=== PATIENT | male | born 1970 | race Caucasian/White ===

== ENCOUNTER 2024-09-02 14:45 | Outpatient (AMB) | payer OTHER, SELFPAY ==
--- NOTE | 2024-09-02 14:49 | MHC.OFFVIS ---
Vital Signs 09/02/24 15:03 Pulse 73 Pulse Source Pulse Oximeter Temp 99.5 F Temp Source Oral Pulse Oximetry (%) 98 Oxygen Delivery Method Room Air Intake Visit Reasons: Reff Veterans right foot osteo bacteremia Allergies silver sulfadiazine [From Silvadene] Allergy (Unknown, Verified 09/02/24 15:05) Unknown HPI HPI Reff Veterans right foot osteo bacteremia: Details: He has had chronic right foot swelling and erythema. [facility] He has had multiple antibiotics and reports area stable at this time. [facility] Medical History (Updated 09/10/24 @ 23:01 by Libby Krishna MD) Foot osteomyelitis, right Review of Systems Const All systems reviewed & are unremarkable except as noted in HPI and below Physical Exam Vital Signs: Last Vital Signs Temp 99.5 F 09/02/24 15:03 Pulse 73 09/02/24 15:03 Pulse Ox 98 09/02/24 15:03 Oxygen Delivery Method Room Air 09/02/24 15:03 Const General: cooperative Orientation/consciousness: patient oriented x3 HEENT Head: Yes normal to inspection Mouth: Normal oral and palatal mucosa present Eyes General: appearance normal, both eyes and all related structures Pupils: Equal, round and reactive pupils present Resp Effort & Inspection: normal respiratory effort Cardio Rate: regular rate Rhythm: regular rhythm GI Palpation (GI): Soft to palpation and nontender General: Yes no CVA tenderness Back/Spine/Pelvis Back: no CVA tenderness Skin General skin exam: no rashes or lesions noted Neuro General: patient oriented x3 Cranial nerves: Yes CN's II-XII intact bilaterally and Yes Equal, round and reactive pupils present Extrem Other: General: Yes normal to inspection Psych Appearance: grossly normal Assessment & Plan Assessment & Plan (1) Foot osteomyelitis, right: Comment: area has been stable and he has no acute complaints Code(s): M86.9 - Osteomyelitis, unspecified Category: Medical Plan: No further antibiotics at this time. Follow per Surgery Coding Level of Care Code New Pt Level 3 (37679) Diagnoses Foot osteomyelitis, right M86.9
[2024-09-02 15:03] VITALS: PULSE 73; TEMP 37.5; O2SAT 98
== END 2024-09-02 15:51 | disposition home or self-care (01) ==
PROVIDERS: Visit Provider Internal Medicine
DX: M86.9 Osteomyelitis, unspecified (principal)
CPT/HCPCS: 99203

== ENCOUNTER → 2024-09-02 14:45 | Outpatient (BNVA) | payer SELFPAY | PROVIDERS: Visit Provider Internal Medicine | DX: M86.9 Osteomyelitis, unspecified (principal) | CPT/HCPCS: 99202 ==